=== PATIENT | male | born 1955 | race Caucasian/White ===

== ENCOUNTER → 2019-01-19 08:23 | Outpatient (CLI) | payer OTHER, SELFPAY ==
[2019-01-19 09:45] LABS: Alanine Aminotransferase 25 IU/L (21-72); Albumin 4.5 g/dL (3.5-5.0); Albumin Globulin Ratio 1.6 (1.0-2.8); Alkaline Phosphatase 90 U/L (38-126); Aspartate Aminotransferase 29 IU/L (17-59); Bilirubin Total 0.7 mg/dL (0.2-1.3); Blood Urea Nitrogen 14 mg/dL (9-20); Calcium 9.9 mg/dL (8.4-10.2); Carbon Dioxide 27 mmol/L (22-32); Chloride 104 mmol/L (98-107); Cholesterol 155 mg/dL (140-199); Estimated Glomerular Filt Rate > 60.0 mL/min (>60); Globulin 2.9 g/dL (1.7-4.1); Glucose 113 mg/dL (80-110); HDL Cholesterol 30 mg/dL (40-60); HEMOLYSIS < 15 (0-50); LDL Cholesterol Calculated 60 mg/dL (<100); Sodium 140 mmol/L (137-145); Total Protein 7.4 g/dL (6.3-8.2); Triglycerides 324 mg/dL (35-150)
[2019-01-19 10:05] LABS: Thyroid Stimulating Hormone < 0.02 uIU/mL (0.47-4.68)
== END ==
PROVIDERS: PCP Physician Assistant; Visit Provider Physician Assistant
DX: E03.9 Hypothyroidism, unspecified (principal); Z12.5 Encounter for screening for malignant neoplasm of prostate; Z13.220 Encounter for screening for lipoid disorders; Z13.6 Encounter for screening for cardiovascular disorders
CPT/HCPCS: 36415; 80053; 80061; 84443; G0103

== ENCOUNTER → 2019-03-16 07:50 | Outpatient (CLI) | payer OTHER, SELFPAY ==
[2019-03-16 09:35] LABS: Cholesterol 187 mg/dL (140-199); HDL Cholesterol 31 mg/dL (40-60); Triglycerides 438 mg/dL (35-150)
== END ==
PROVIDERS: PCP Physician Assistant; Visit Provider Physician Assistant
DX: E03.9 Hypothyroidism, unspecified (principal); E78.1 Pure hyperglyceridemia; R79.89 Other specified abnormal findings of blood chemistry
CPT/HCPCS: 36415; 80061; 84443

== ENCOUNTER → 2019-07-27 07:56 | Outpatient (CLI) | payer OTHER, SELFPAY ==
[2019-07-27 08:59] LABS: Carbon Dioxide 28 mmol/L (22-32); Chloride 104 mmol/L (98-107); Glucose 126 mg/dL (80-110); HEMOLYSIS < 15 (0-50); Potassium 4.4 mmol/L (3.4-5.1); Sodium 141 mmol/L (137-145)
[2019-07-27 09:00] LABS: Alanine Aminotransferase 17 IU/L (<50); Albumin 4.7 g/dL (3.5-5.0); Albumin Globulin Ratio 1.7 (1.0-2.8); Alkaline Phosphatase 79 U/L (38-126); Aspartate Aminotransferase 30 IU/L (17-59); BUN Creatinine Ratio 18.8 (6-22); Bilirubin Total 0.5 mg/dL (0.2-1.3); Blood Urea Nitrogen 15 mg/dL (9-20); Calcium 9.8 mg/dL (8.4-10.2); Cholesterol 154 mg/dL (140-199); Estimated Glomerular Filt Rate > 60.0 mL/min (>60); Globulin 2.8 g/dL (1.7-4.1); HDL Cholesterol 26 mg/dL (40-60); LDL Cholesterol Calculated 56 mg/dL (<100); Total Protein 7.5 g/dL (6.3-8.2); Triglycerides 361 mg/dL (35-150)
== END ==
PROVIDERS: PCP Physician Assistant; Referring Provider Physician Assistant; Visit Provider Physician Assistant
DX: E03.9 Hypothyroidism, unspecified (principal)
CPT/HCPCS: 36415; 80053; 80061; 84443

== ENCOUNTER → 2020-03-19 15:48 | Outpatient (CLI) | payer OTHER, SELFPAY ==
--- NOTE | 2020-03-19 15:54 | DI.RAD.S_ITS ---
PROCEDURE: XR ANKLE LT MIN 3V INDICATIONS: left ankle injury and pain TECHNIQUE: 3 views of the ankle were acquired. COMPARISON: None. FINDINGS: Bones: No fractures or dislocations. Ankle mortise is normally aligned. No suspicious bony lesions. Plantar calcaneal spur. Tibiotalar joint degeneration, sclerosis and spurring. Soft tissues: Possible lateral soft tissue swelling. IMPRESSION: No fracture. If the patient's symptoms do not improve recommend followup radiographs in 10 days to assess for healing sclerosis/occult injury. Dictated by: Negro Negrete M.D. on 03/19/2020 at 16:29 Approved by: Negro Negrete M.D. on 03/19/2020 at 16:30
== END ==
PROVIDERS: PCP Physician Assistant; Referring Provider Nurse Practitioner; Visit Provider Nurse Practitioner
DX: S99.912A Unspecified injury of left ankle, initial encounter (principal); M25.572 Pain in left ankle and joints of left foot; X58.XXXA Exposure to other specified factors, initial encounter
CPT/HCPCS: 73610

== ENCOUNTER → 2020-07-23 14:46 | Outpatient (CLI) | payer OTHER, SELFPAY ==
[2020-07-23] MEDS: COVID-19 VACC #1, MRNA(MOD) 100 MCG/0.5 ML VIAL IM (14:52)
== END ==
PROVIDERS: PCP Physician Assistant; Visit Provider Internal Medicine
DX: Z23 Encounter for immunization (principal)
CPT/HCPCS: 0011A; 91301

== ENCOUNTER → 2020-08-20 15:13 | Outpatient (CLI) | payer OTHER, SELFPAY ==
[2020-08-20] MEDS: COVID-19 VACC #2, MRNA(MOD) 100 MCG/0.5 ML VIAL IM (15:18)
== END ==
PROVIDERS: PCP Physician Assistant; Visit Provider Internal Medicine
DX: Z23 Encounter for immunization (principal)
CPT/HCPCS: 0012A; 91301

== ENCOUNTER 2020-08-24 15:02 | Emergency (ER) | payer OTHER, SELFPAY ==
[2020-08-24 15:04] VITALS: BP 205/100; PULSE 85; RESP 22; TEMP 36.7; O2SAT 97
--- NOTE | 2020-08-24 15:35 | ED.RECABL ---
HPI - Recheck/Abnormal Lab/Rx General Chief Complaint: Recheck/Abnormal Lab/Rx Stated Complaint: Episode of Hypertension Time Seen by Provider: 08/24/20 15:05 Source: patient Mode of arrival: Ambulatory Limitations: no limitations History of Present Illness HPI narrative: 65M daily smoker with history of hypothyroid and HTN presents with a sensation of something stuck in his throat. He has minimal pain and feels like something smooth is in the back of his throat and he can't get it out. He denies fever or chills. He just had his second COVID shot a few days ago. He has had some nasal secretions. He denies CP or SOB. He is not dizzy, weak, or lightheaded. He denies any trouble breathing or swallowing. He states he was seen and evaluated by paramedics on [facility] and sent here for further evaluation. Symptoms since prior visit: no new symptoms Related Data Home Medications Medication Instructions Recorded Confirmed Vitamin B-12 See Rx Instructions .ROUTE .COMPLEX 01/17/19 03/19/20 Previous Rx's Medication Instructions Recorded levothyroxine 200 mcg tablet See Rx Instructions .ROUTE 02/12/20 .COMPLEX #90 tab levothyroxine 25 mcg tablet See Rx Instructions .ROUTE 02/12/20 .COMPLEX #90 tab prednisone See Rx Instructions .ROUTE 08/24/20 .COMPLEX #30 tab Allergies Allergy/AdvReac Type Severity Reaction Status Date / Time No Known Drug Allergies Allergy Verified 03/19/20 16:33 Review of Systems Constitutional Constitutional: Denies chills, Denies fatigue, Denies fever(s), Denies frequent falls, Denies lethargy and Denies weakness Eyes Eyes: Denies change in vision, Denies eye discharge, Denies irritation and Denies loss of vision ENT Ears, Nose, Mouth, and Throat: Denies change in voice, Denies dizziness, Denies neck pain, Reports sore throat and Reports throat swelling Cardiovascular Cardiovascular: Denies chest pain, Denies irregular heart rhythm, Denies lightheadedness, Denies palpitations, Denies dyspnea, Denies dyspnea on exertion and Denies orthopnea Respiratory Respiratory: Denies cough, Denies dyspnea, Denies dyspnea on exertion and Denies wheezing Gastrointestinal Gastrointestinal: Denies abdominal pain, Denies change in bowel habits, Denies diarrhea, Denies nausea and Denies vomiting Musculoskeletal Musculoskeletal: Denies neck pain and Denies numbness Integumentary/Breasts Skin/Breast: Denies pruritus, Denies erythema, Denies rash and Denies wounds Neurologic Neurologic: Denies behavioral changes, Denies confusion, Denies dizziness, Denies frequent falls, Denies loss of vision, Denies numbness and Denies weakness Psychiatric Psychiatric: Denies anxiety, Denies behavioral changes, Denies confusion, Denies depression, Denies homicidal ideation and Denies suicidal ideation Endocrine Endocrine: Denies fatigue, Denies flushing and Denies palpitations Hematologic/Lymphatic Hematologic/Lymphatic: Denies easy bruising Allergic/Immunologic Allergic/Immunologic: Denies urticaria, Reports throat swelling and Denies wheezing Patient History Family History Father Age: 88 High cholesterol Mother Age: 86 Essential hypertension Social History Smoking Status: Current every day smoker Tobacco: How many years used: 40 quit status: considering quitting (01/17/19 Patient is interested in trying anything.) second hand exposure: No alcohol intake: current (I only drink socially maybe once or twice a year. I never buy it.) substance use type: does not use Smoking Status: Current every day smoker Exam Narrative Exam Narrative: GENERAL: [65] year old patient appears stated age. Well-nourished, well-developed patient, in mild distress. HEAD: Atraumatic. Normocephalic. EYES: Pupils equal round and reactive. Extraocular motions intact. No scleral icterus. No injection or drainage. ENT: Nose without bleeding, purulent drainage. Throat with moderate erythema, but without tonsillar hypertrophy or exudate. Uvula appears slightly edematous Airway patent. NECK: Trachea midline. Non tender CARDIOVASCULAR: Regular rate and rhythm without murmurs, gallops, or rubs. RESPIRATORY: Clear to auscultation. Breath sounds equal bilaterally. No wheezes, rales, or rhonchi. GASTROINTESTINAL: Abdomen soft, non-tender, nondistended. EXTREMITIES: No edema or joint tenderness. BACK: Nontender without deformity or crepitance. No flank tenderness. NEURO: AOx3. SKIN: No rash or erythema of visible areas Initial Vital Signs Initial Vital Signs: Vital Signs Temperature 98.0 F 08/24/20 15:04 Pulse Rate 85 08/24/20 15:04 Respiratory Rate 22 08/24/20 15:04 Blood Pressure 205/100 H 08/24/20 15:04 Pulse Oximetry 97 08/24/20 15:04 Course Course Course Narrative: Near complete resolution with above-stated therapies. No evidence of peritonsillar abscess. No difficulty swallowing or breathing. Patient is nonseptic. Vitals have greatly improved, most recent blood pressure in the 140s. Return precautions given and questions answered to the apparent satisfaction of the patient Orders Ordered: ED Orders 08/24/20 15:33 EKG-12 Lead Stat 08/24/20 15:57 Basic Metabolic Panel Stat Complete Blood Count AUTO DIFF Stat Troponin & CK Cardiac Panel Stat Discontinued Medications Dexamethasone (Dexamethasone 10 Mg/Ml Vial) 10 mg IV NOW ONE Stop: 08/24/20 15:34 Last Admin: 08/24/20 16:13 Dose: 10 mg Documented by: [place] Ketorolac Tromethamine (Ketorolac 60 Mg/2 Ml Vial) 15 mg IV NOW ONE Stop: 08/24/20 15:34 Last Admin: 08/24/20 16:12 Dose: 15 mg Documented by: [place] Vital Signs Vital signs: Vital Signs - 8 hr 08/24/20 15:04 08/24/20 16:00 Temperature 98.0 F Pulse Rate 85 69 Respiratory Rate 22 17 Blood Pressure 205/100 H 169/97 H Pulse Oximetry 97 94 MDM - Recheck/Abnormal Lab/Rx Lab Data Result diagrams: 08/24/20 15:57 08/24/20 15:57 Labs: Lab Results 08/24/20 08/24/20 Range/Units 15:57 15:57 WBC 10.3 (4.5-11.0) X10^3/uL RBC 5.58 (4.5-5.9) X10^6/uL Hgb 16.6 (13.5-17.5) g/dL Hct 47.8 (41-53) % MCV 85.6 (80-100) fL MCH 29.8 (26-34) PG MCHC 34.8 (30-36) % RDW 13.2 (11.6-14.8) % Plt Count 196 (150-400) X10^3/uL Neut % (Auto) 71.4 (50-75) % Lymph % (Auto) 19.9 L (25-40) % [place] % (Auto) 6.8 (3-14) % Eos % (Auto) 1.5 L (2-4) % Baso % (Auto) 0.4 (0-2) % Neut # (Auto) 7300 H (7129-1141) /uL Lymph # (Auto) 2000 (7649-6901) /uL [place] # (Auto) 700 (0-900) /uL Eos # (Auto) 200 (0-450) /uL Baso # (Auto) 0 (0-100) /uL Sodium 137 (137-145) mmol/L Potassium 3.8 (3.4-5.1) mmol/L Chloride 103 (98-107) mmol/L Carbon Dioxide 26 (22-32) mmol/L BUN 12 (9-20) mg/dL Creatinine 0.66 (0.66-1.25) mg/dL Estimated GFR > 60.0 (>60) mL/min BUN/Creatinine Ratio 18.2 (6-22) Glucose 99 (80-110) mg/dL Calcium 10.0 (8.4-10.2) mg/dL Total Creatine Kinase 101 (55-170) U/L CK-MB (CK-2) 3.01 H (<2.37) ng/mL CK-MB (CK-2) Rel Index 3.0 (1.5-5.0) % Troponin I < 0.012 (0.01-0.034) ng/mL Point of Care Testing Rapid Strep A Negative Discharge Plan Departure Patient Disposition: Home Clinical Impression: Uvulitis Instructions: DI for Uvulitis Activity Restrictions/Additional Instructions: *You have been diagnosed with [throat difficulties, likely a consequence of a slightly swollen uvula with postnasal drip.] *What to do: *Take medications as directed: Prescription for steroid (sent to [facility]) as well as [id number] antihistamines to dry secretions are recommended *Follow up with your primary care provider in 2-3 days, call for an appointment. Let them know you were seen in the Emergency Department and that we ask that you be seen in follow up *Return to ER if you should have any new, worsening or concerning symptoms, such as [chest pain, shortness of breath, blurred vision, confusion, trouble with speech, numbness, tingling or weakness or other bothersome symptoms] Prescriptions: New prednisone 10 mg tablet See Rx Instructions .ROUTE .COMPLEX Qty: 30 RF: 0 No Action levothyroxine 25 mcg tablet See Rx Instructions .ROUTE .COMPLEX Qty: 90 RF: 2 levothyroxine 200 mcg tablet See Rx Instructions .ROUTE .COMPLEX Qty: 90 RF: 2 Vitamin B-12 See Rx Instructions .ROUTE .COMPLEX RF: 0
[2020-08-24 16:00] VITALS: BP 169/97; PULSE 69; RESP 17; O2SAT 94
[2020-08-24] MEDS: KETOROLAC 60 MG/2 ML VIAL 15 MG IV (16:12)
[2020-08-24] MEDS: DEXAMETHASONE 10 MG/ML VIAL IV (16:13)
[2020-08-24 16:21] LABS: BUN Creatinine Ratio 18.2 (6-22); Blood Urea Nitrogen 12 mg/dL (9-20); Carbon Dioxide 26 mmol/L (22-32); Chloride 103 mmol/L (98-107); Creatine Kinase 101 U/L (55-170); Estimated Glomerular Filt Rate > 60.0 mL/min (>60); Glucose 99 mg/dL (80-110); HEMOLYSIS < 15 (0-50); Potassium 3.8 mmol/L (3.4-5.1); Sodium 137 mmol/L (137-145)
[2020-08-24 16:33] LABS: Troponin I < 0.012 ng/mL (0.01-0.034)
[2020-08-24 16:36] LABS: Creatine Kinase MB 3.01 ng/mL (<2.37)
[2020-08-24 16:42] LABS: Add Manual Diff / Slide Review NO; Basophils Absolute Auto 0 /uL (0-100); Basophils Percent Auto 0.4 % (0-2); Eosinophils Absolute Auto 200 /uL (0-450); Eosinophils Percent Auto 1.5 % (2-4); Hematocrit 47.8 % (41-53); Hemoglobin 16.6 g/dL (13.5-17.5); Lymphocytes Absolute Auto 2000 /uL (1100-4500); Lymphocytes Percent Auto 19.9 % (25-40); Mean Corpuscular HGB Conc 34.8 % (30-36); Mean Corpuscular Hemoglobin 29.8 PG (26-34); Mean Corpuscular Volume 85.6 fL (80-100); Monocytes Absolute Auto 700 /uL (0-900); Monocytes Percent Auto 6.8 % (3-14); Neutrophils Absolute Auto 7300 /uL (1500-7000); Neutrophils Percent Auto 71.4 % (50-75); Platelet Count 196 X10^3/uL (150-400); Red Blood Cell Count 5.58 X10^6/uL (4.5-5.9); Red Cell Distribution Width 13.2 % (11.6-14.8); White Blood Cell Count 10.3 X10^3/uL (4.5-11.0)
== END 2020-08-24 16:55 | disposition home or self-care (01) ==
PROVIDERS: Emergency Provider Emergency Medicine
DX: K12.2 Cellulitis and abscess of mouth (principal)
CPT/HCPCS: 36415; 80048; 82550; 82553; 84484; 85025; 87880; 93005; 96374; 96375; 99282; 99284; J1100; J1885

== ENCOUNTER 2021-01-27 07:13 | Emergency (ER) | payer OTHER, SELFPAY ==
[2021-01-27 07:15] VITALS: BP 182/84; PULSE 69; RESP 18; TEMP 36.8; O2SAT 100; BMI 30.5
--- NOTE | 2021-01-27 07:36 | ED.GENADULT ---
HPI - General Adult General Chief complaint: Upper Respiratory Symptoms Stated complaint: Difficulty swallowing today Time Seen by Provider: 01/27/21 07:26 Source: patient Mode of arrival: Ambulatory Limitations: no limitations History of Present Illness HPI narrative: Patient is a 65-year-old male. States that he has a known history of allergies. Is allergic to [place]. He is a vasquez. Does have sinus congestion, postnasal drip. Woke up this morning feeling like there is a lump in the back of his throat. This does cause him some difficulty with swallowing but he is still able to maintain his secretions. No problems breathing. Has not tried anything for symptoms prior to arrival. Had a very similar episode earlier in the year. Received steroids. He states that that resolved his symptoms. He is not currently on any decongestants. He is taking the rest of his medications as directed. Related Data Home Medications Medication Instructions Recorded Confirmed Vitamin B-12 See Rx Instructions .ROUTE .COMPLEX 01/17/19 09/09/20 Previous Rx's Medication Instructions Recorded levothyroxine 200 mcg tablet See Rx Instructions .ROUTE 02/12/20 .COMPLEX #90 tab levothyroxine 25 mcg tablet See Rx Instructions .ROUTE 02/12/20 .COMPLEX #90 tab lisinopril 10 1 tab PO DAILY #90 tab 09/09/20 mg-hydrochlorothiazide 12.5 mg tablet prednisone 20 mg tablet 20 mg PO DAILY 3 Days #3 tab 01/27/21 Allergies Allergy/AdvReac Type Severity Reaction Status Date / Time No Known Drug Allergies Allergy Verified 01/27/21 07:34 Patient History Medical History Hypertension Hypothyroidism Family History Father Age: 88 High cholesterol Mother Age: 86 Essential hypertension Social History Smoking Status: Current every day smoker Tobacco: How many years used: 40 quit status: considering quitting (01/17/19 Patient is interested in trying anything.) second hand exposure: No alcohol intake: current (I only drink socially maybe once or twice a year. I never buy it.) substance use type: does not use Smoking Status: Current every day smoker Exam Initial Vital Signs Initial Vital Signs: Vital Signs Temperature 98.3 F 01/27/21 07:15 Pulse Rate 69 01/27/21 07:15 Respiratory Rate 18 01/27/21 07:15 Blood Pressure 182/84 H 01/27/21 07:15 Pulse Oximetry 100 01/27/21 07:15 Const General: cooperative, healthy appearing, comfortable and well developed [facility] Head: normal to inspection and normocephalic Ears: other (Bilateral tympanic membranes bulging without erythema) Nose: external nose normal Face and sinus: normal facial exam Mouth: oral mucosae normal and moist mucous membranes Throat: other (Uvula swollen but midline) Eyes General: appearance normal, both eyes and all related structures Resp Effort & Inspection: normal respiratory effort Auscultation: clear to auscultation bilaterally Cardio Rate: regular rate Rhythm: regular rhythm Skin General: no rashes or lesions noted Neuro General: patient alert, patient awake and moves all extremities Extrem General: normal to inspection and capillary refill normal Psych Appearance: grossly normal Course Vital Signs Vital signs: Vital Signs - 8 hr 01/27/21 07:15 Temperature 98.3 F Pulse Rate 69 Respiratory Rate 18 Blood Pressure 182/84 H Pulse Oximetry 100 Medical Decision Making MDM Narrative Medical decision making narrative: Tolerating oral secretions, no respiratory distress, does have a 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 Will place him on steroids as the seem to help the symptoms prior. We did discuss starting on a antihistamine/allergy medication. He expressed understanding. No indication for antibiotics. Discharge Plan Departure Patient Disposition: Home Clinical Impression: Uvular swelling Instructions: Allergies (Alternative Therapy) Activity Restrictions/Additional Instructions: I do recommend that you start taking a allergy medicine such as Claritin or Spring or Zyrtec. You can purchase these [id number]. Take the steroids as directed. Return to the emergency department for any new or worsening symptoms Prescriptions: New prednisone 20 mg tablet 20 mg PO DAILY 3 Days Qty: 3 RF: 0 No Action levothyroxine 25 mcg tablet See Rx Instructions .ROUTE .COMPLEX Qty: 90 RF: 2 levothyroxine 200 mcg tablet See Rx Instructions .ROUTE .COMPLEX Qty: 90 RF: 2 Vitamin B-12 See Rx Instructions .ROUTE .COMPLEX RF: 0 lisinopril-hydrochlorothiazide 10-12.5 mg tablet 1 tab PO DAILY Qty: 90 RF: 1 Referrals: Miscellaneous,Doctor, MD [Primary Care Provider] -
== END 2021-01-27 07:50 | disposition home or self-care (01) ==
PROVIDERS: Emergency Provider Emergency Medicine
DX: K13.79 Other lesions of oral mucosa (principal)
CPT/HCPCS: 87880; 99281; 99282

== ENCOUNTER → 2021-03-06 08:12 | Outpatient (CLI) | payer OTHER, SELFPAY ==
[2021-03-06 09:14] LABS: Alanine Aminotransferase 18 IU/L (<50); Albumin 4.7 g/dL (3.5-5.0); Albumin Globulin Ratio 1.8 (1.0-2.8); Alkaline Phosphatase 74 U/L (38-126); Aspartate Aminotransferase 29 IU/L (17-59); BUN Creatinine Ratio 22.9 (6-22); Bilirubin Total 0.4 mg/dL (0.2-1.3); Blood Urea Nitrogen 19 mg/dL (9-20); Calcium 9.8 mg/dL (8.4-10.2); Carbon Dioxide 29 mmol/L (22-32); Chloride 105 mmol/L (98-107); Cholesterol 176 mg/dL (140-199); Estimated Glomerular Filt Rate > 60.0 mL/min (>60); Globulin 2.6 g/dL (1.7-4.1); Glucose 121 mg/dL (80-110); HDL Cholesterol 30 mg/dL (40-60); HEMOLYSIS 19 (0-50); Potassium 4.1 mmol/L (3.4-5.1); Sodium 139 mmol/L (137-145); Total Protein 7.3 g/dL (6.3-8.2); Triglycerides 493 mg/dL (35-150)
[2021-03-06 09:27] LABS: Free T4, Direct Thyroxine 1.36 ng/dL (0.78-2.19)
[2021-03-06 09:41] LABS: Thyroid Stimulating Hormone 2.18 uIU/mL (0.47-4.68)
== END ==
PROVIDERS: Referring Provider Family Medicine; Visit Provider Family Medicine
DX: E03.9 Hypothyroidism, unspecified (principal); I10 Essential (primary) hypertension; F17.200 Nicotine dependence, unspecified, uncomplicated
CPT/HCPCS: 36415; 80053; 80061; 84439; 84443

== ENCOUNTER → 2021-07-15 14:50 | Outpatient (CLI) | payer OTHER, SELFPAY ==
--- NOTE | 2021-07-15 14:53 | DI.RAD.S_ITS ---
PROCEDURE: XR FOOT LT MIN 3V INDICATIONS: foot injury TECHNIQUE: 3 views of the foot were acquired. COMPARISON: None. FINDINGS: Bones: No fractures or dislocations. Moderate left foot joint osteoarthritis is seen. No suspicious bony lesions. Soft tissues: No tibiotalar joint effusion. Achilles tendon appears normal. IMPRESSION: No acute left foot fracture or dislocation. Moderate left foot osteoarthritis. Dictated by: Taiwo Kearns M.D. on 07/15/2021 at 15:13 Approved by: Taiwo Kearns M.D. on 07/15/2021 at 15:15
== END ==
PROVIDERS: Referring Provider Nurse Practitioner Family; Visit Provider Nurse Practitioner Family
DX: S96.912A Strain of unspecified muscle and tendon at ankle and foot level, left foot, initial encounter (principal); M19.072 Primary osteoarthritis, left ankle and foot; X58.XXXA Exposure to other specified factors, initial encounter
CPT/HCPCS: 73630